=== PATIENT | female | born 1935 | race Asian ===

== ENCOUNTER → 2016-06-27 | Outpatient (CLI) | payer MEDICARE, OTHER ==
[~2016-06-27] VITALS: Ht 157.5 cm; Wt 59.6 kg
[~2016-06-27] MED LIST: AMLO5TAB66 PO; CARV12 PO; CHLO25TA16 PO; DIGO125T71 PO; METF500T4 PO; POTA8TAB4 PO; ROSU20 PO; VALS1TAB81 PO; VITAD1000 PO; ZAFI20TA13 PO
[2016-06-27 10:13] VITALS: BP 136/73
== END | disposition home or self-care (01) ==
LOC: SRCNTR 10:06
PROVIDERS: ATTEND Internal Medicine Clinical Cardiac Electrophysiology
DX: Z45.02 Encounter for adjustment and management of automatic implantable cardiac defibrillator (principal)
CPT/HCPCS: G0463

== ENCOUNTER → 2016-07-04 | Outpatient (CLI) | payer MEDICARE, OTHER ==
[~2016-07-04] VITALS: Ht 157.5 cm; Wt 59.5 kg
[2016-07-04 09:51] VITALS: BP 149/77
== END | disposition home or self-care (01) ==
LOC: SRCNTR 09:46
PROVIDERS: ATTEND Internal Medicine Clinical Cardiac Electrophysiology
DX: I11.0 Hypertensive heart disease with heart failure (principal); I50.9 Heart failure, unspecified; I25.10 Atherosclerotic heart disease of native coronary artery without angina pectoris; I44.7 Left bundle-branch block, unspecified; J45.909 Unspecified asthma, uncomplicated; E11.9 Type 2 diabetes mellitus without complications; Z95.810 Presence of automatic (implantable) cardiac defibrillator
CPT/HCPCS: G0463

== ENCOUNTER → 2016-08-01 | Outpatient (CLI) | payer MEDICARE, OTHER ==
[~2016-08-01] VITALS: Ht 147.3 cm; Wt 58.5 kg
[2016-08-01 10:33] VITALS: BP 133/75
== END | disposition home or self-care (01) ==
LOC: SRCNTR 10:14
PROVIDERS: ATTEND Internal Medicine Clinical Cardiac Electrophysiology
DX: Z45.02 Encounter for adjustment and management of automatic implantable cardiac defibrillator (principal); E11.9 Type 2 diabetes mellitus without complications; J45.909 Unspecified asthma, uncomplicated; I11.0 Hypertensive heart disease with heart failure; I50.9 Heart failure, unspecified; I25.10 Atherosclerotic heart disease of native coronary artery without angina pectoris
CPT/HCPCS: G0463

== ENCOUNTER → 2017-04-12 | Outpatient (CLI) | payer MEDICARE, OTHER ==
[~2017-04-12] VITALS: Ht 160 cm; Wt 59.0 kg
[~2017-04-12] MED LIST changes: -CHLO25TA16 PO; +CHLO25TA3 PO; +LORA5SOL62 PO
[2017-04-12 09:34] VITALS: BP 143/77
== END | disposition home or self-care (01) ==
LOC: SRCNTR 09:25
PROVIDERS: ATTEND Internal Medicine Cardiovascular Disease
DX: I11.9 Hypertensive heart disease without heart failure (principal); E78.5 Hyperlipidemia, unspecified; E55.9 Vitamin D deficiency, unspecified; E11.9 Type 2 diabetes mellitus without complications; I42.9 Cardiomyopathy, unspecified; J44.9 Chronic obstructive pulmonary disease, unspecified; M19.90 Unspecified osteoarthritis, unspecified site; Z95.810 Presence of automatic (implantable) cardiac defibrillator
CPT/HCPCS: G0463

== ENCOUNTER → 2017-06-28 | Outpatient (CLI) | payer MEDICARE, OTHER ==
[~2017-06-28] MED LIST changes: +METF-444 PO; -METF500T4 PO
[2017-06-28 12:30] LABS: BASOPHILS % (AUTO) 1.1 % (0.0-2.0); EOSINOPHILS % (AUTO) 2.5 % (1.0-6.0); HEMATOCRIT 34.9 % (36-46); HEMOGLOBIN 11.9 g/dL (12.0-16.0); LYMPHOCYTES % (AUTO) 26.4 % (22.0-44.0); MEAN CORPUSCULAR HEMOGLOBIN 28.7 pg (26.0-34.0); MEAN CORPUSCULAR HGB CONC 34.2 G/dL (31.0-37.0); MEAN CORPUSCULAR VOLUME 84 fL (80-100); MONOCYTES # (AUTO) 0.7 K/uL (0.1-1.0); NEUTROPHILS # (AUTO) 4.6 K/uL (1.8-7.7); PLATELET COUNT (AUTO) 181 K/uL (150-450); RED BLOOD CELL COUNT(AUTO) 4.17 MIL/uL (4.00-5.20); RED CELL DISTRIBUTION WIDTH 14.5 % (11.5-14.5)
[2017-06-28 13:05] LABS: ALBUMIN 3.9 g/dL (3.4-5.0); BILIRUBIN,TOTAL 0.5 mg/dL (0.1-1.0); CHOL/HDL RATIO 1.9 (3.9-5.7); CREATININE 0.95 mg/dL (0.60-1.30); POTASSIUM 4.1 mmol/L (3.5-5.1); THYROID STIMULATING HORMONE 4.22 uIU/mL (0.36-3.74); TOTAL PROTEIN, SERUM 9.4 g/dL (6.4-8.2)
[2017-06-28 13:30] LABS: APPEARANCE,URINE CLEAR (CLEAR); BILIRUBIN,URINE NEGATIVE (NEGATIVE); GLUCOSE, URINE (UA) NEGATIVE (NEGATIVE); KETONES,URINE NEGATIVE (NEGATIVE); OCCULT BLOOD,URINE TRACE (NEGATIVE); UROBILINOGEN,URINE 0.2 mg/dL (<=1.0)
[2017-06-28 13:31] LABS: LEUKOCYTE ESTERASE ,URINE TRACE (NEGATIVE); NITRATE,URINE NEGATIVE (NEGATIVE); PROTEIN,URINE TRACE (NEGATIVE)
[2017-06-28 15:08] LABS: BACTERIA,URINE Rare /HPF (None Seen); RBC,URINE 0-2 /HPF (0-2)
[2017-06-28 15:09] LABS: SQUAMOUS EPITHELIAL CELL,UR Rare /LPF (None Seen)
== END | disposition home or self-care (01) ==
LOC: LABPV 10:49
PROVIDERS: ATTEND Internal Medicine Cardiovascular Disease
DX: E11.9 Type 2 diabetes mellitus without complications (principal); R82.99 Other abnormal findings in urine
CPT/HCPCS: 84443; 87086

== ENCOUNTER → 2017-07-18 | Outpatient (CLI) | payer MEDICARE, OTHER ==
[~2017-07-18] VITALS: Ht 152.4 cm; Wt 59.0 kg
[~2017-07-18] MED LIST changes: +VALS160T2 PO
[2017-07-18 09:32] VITALS: BP 137/70
== END | disposition home or self-care (01) ==
LOC: SRCNTR 09:11
PROVIDERS: ATTEND Internal Medicine Cardiovascular Disease
DX: I11.9 Hypertensive heart disease without heart failure (principal); I42.9 Cardiomyopathy, unspecified; E11.9 Type 2 diabetes mellitus without complications; E78.5 Hyperlipidemia, unspecified; M19.90 Unspecified osteoarthritis, unspecified site; Z95.810 Presence of automatic (implantable) cardiac defibrillator
CPT/HCPCS: 11042; G0463

== ENCOUNTER → 2017-07-31 | Outpatient (CLI) | payer MEDICARE, OTHER ==
[~2017-07-31] VITALS: Ht 152.4 cm; Wt 59.0 kg
[~2017-07-31] MED LIST changes: -VALS1TAB81 PO
[2017-07-31 10:27] VITALS: BP 149/94
== END | disposition home or self-care (01) ==
LOC: SRCNTR 10:20
PROVIDERS: ATTEND Internal Medicine Clinical Cardiac Electrophysiology
DX: Z45.02 Encounter for adjustment and management of automatic implantable cardiac defibrillator (principal); I50.9 Heart failure, unspecified; I25.10 Atherosclerotic heart disease of native coronary artery without angina pectoris; J45.909 Unspecified asthma, uncomplicated; E11.9 Type 2 diabetes mellitus without complications
CPT/HCPCS: G0463

== ENCOUNTER → 2017-10-18 | Outpatient (CLI) | payer MEDICARE, OTHER ==
[~2017-10-18] VITALS: Ht 157.5 cm; Wt 58.5 kg
[2017-10-18 11:31] VITALS: BP 140/75
== END | disposition home or self-care (01) ==
LOC: SRCNTR 10:07
PROVIDERS: ATTEND Internal Medicine Cardiovascular Disease
DX: I11.9 Hypertensive heart disease without heart failure (principal); N63.20 Unspecified lump in the left breast, unspecified quadrant; I42.9 Cardiomyopathy, unspecified; M19.90 Unspecified osteoarthritis, unspecified site; E78.5 Hyperlipidemia, unspecified; J44.9 Chronic obstructive pulmonary disease, unspecified
CPT/HCPCS: G0463

== ENCOUNTER 2018-07-26 11:30 | Inpatient (IN) | payer MEDICARE, OTHER ==
[~2018-07-26] VITALS: Ht 152.4 cm; Wt 49.9 kg
[~2018-07-26 11:30] MED LIST changes: -CARV12 PO; +CARV25 PO; +LORA10TA7 PO; -LORA5SOL62 PO; -ROSU20 PO; +ROSU20TA23 PO
[2018-07-26] MEDS ORDERED: CYCLOBENZAPRINE HCL 10 MG TABLET ONE (12:56)
[2018-07-26] MEDS ORDERED: DENTURE ADHESIVE 68 GM CREAM DT PRN (14:15)
[2018-07-26] MEDS ORDERED: MAGNESIUM HYDROXIDE SUSPENSION 30 ML UDCUP PO PRN (14:15)
[2018-07-26] MEDS ORDERED: GLUCAGON,HUMAN RECOMBINANT 1 MG VIAL IM PRN (14:30)
[2018-07-26] MEDS ORDERED: DEXTROSE 50%-WATER 25 GM/50 ML SYRINGE IVP PRN (14:30)
[2018-07-26] MEDS ORDERED: INSULIN LISPRO 100 UNITS/ML SQ PRN ×2 (14:30)
[2018-07-26] MEDS: CYCLOBENZAPRINE HCL 10 MG TABLET PO SCH (14:41)
[2018-07-26] MEDS: OxyCODONE HCL/ACETAMINOPHEN 10-325 MG TABLET PO PRN ×2 (14:41→20:45)
[2018-07-26 15:49] VITALS: BP 137/66
[2018-07-26] MEDS ORDERED: ACETAMINOPHEN 325 MG TABLET PO PRN (17:45)
[2018-07-26 18:00] LABS: GLUCOMETER DEV NAME(LOC) 2WR.2; GLUCOSE,POINT OF CARE 106 MG/DL (70-110)
[2018-07-26 18:13] LABS: BASOPHILS % (AUTO) 0.3 % (0.0-2.0); EOSINOPHILS % (AUTO) 1.7 % (1.0-6.0); HEMATOCRIT 25.2 % (36-46); HEMOGLOBIN 8.4 g/dL (12.0-16.0); LYMPHOCYTES # (AUTO) 1.8 K/uL (1.0-4.8); LYMPHOCYTES % (AUTO) 26.2 % (22.0-44.0); MEAN CORPUSCULAR HEMOGLOBIN 28.3 pg (26.0-34.0); MEAN CORPUSCULAR HGB CONC 33.2 G/dL (31.0-37.0); MEAN CORPUSCULAR VOLUME 85 fL (80-100); MONOCYTES # (AUTO) 0.7 K/uL (0.1-1.0); MONOCYTES % (AUTO) 10.3 % (2.0-9.0); NEUTROPHILS # (AUTO) 4.2 K/uL (1.8-7.7); NEUTROPHILS % (AUTO) 61.5 % (40.0-70.0); PLATELET COUNT (AUTO) 150 K/uL (150-450); RED BLOOD CELL COUNT(AUTO) 2.96 MIL/uL (4.00-5.20); RED CELL DISTRIBUTION WIDTH 16.5 % (11.5-14.5)
[2018-07-26 18:31] LABS: ALANINE AMINOTRANSFERASE 15 U/L (12-78); ALBUMIN 2.8 g/dL (3.4-5.0); ALKALINE PHOSPHATASE 112 U/L (46-116); ANION GAP 10 mmol/L (8-16); ASPARTATE AMINOTRANSFERASE 24 U/L (15-37); BILIRUBIN,TOTAL 0.8 mg/dL (0.1-1.0); CARBON DIOXIDE 26 mmol/L (22-29); CHLORIDE 97 mmol/L (98-107); CREATININE 0.89 mg/dL (0.60-1.30); GLUCOSE,RANDOM 97 mg/dL (70-110); POTASSIUM 4.1 mmol/L (3.5-5.1); SODIUM SERUM 133 mmol/L (136-145); TOTAL PROTEIN, SERUM 7.2 g/dL (6.4-8.2); UREA NITROGEN, BLOOD 22 mg/dL (7-18)
[2018-07-26 18:32] LABS: GLOMERULAR FILTR. RATE CALC > 60 mL/min (>60)
[2018-07-26 20:39] VITALS: BP 129/50
[2018-07-26] MEDS: MELATONIN 5 MG TABLET PO PRN (20:44)
[2018-07-26] MEDS: CARVEDILOL 12.5 MG TABLET PO SCH (20:44)
[2018-07-26] MEDS: CHOLECALCIFEROL (VIT D3) 1,000 UNITS TABLET PO SCH (20:45)
[2018-07-26] MEDS: DOCUSATE SODIUM 100 MG CAPSULE PO SCH (20:46)
[2018-07-26] MEDS: SENNA 187 MG TABLET PO SCH (20:46)
[2018-07-26] MEDS ORDERED: 0.9% SODIUM CHLORIDE 10 ML SYRINGE IVP SCH (21:00)
[2018-07-26] MEDS ORDERED: DOCUSATE SODIUM 100 MG CAPSULE PO SCH (21:00)
[2018-07-27 00:25] VITALS: BP 120/61
[2018-07-27] MEDS: OxyCODONE HCL/ACETAMINOPHEN 10-325 MG TABLET PO PRN ×2 (00:25→10:19)
[2018-07-27] MEDS: 0.9% SODIUM CHLORIDE 10 ML SYRINGE IVP SCH ×4 (00:25→23:27)
[2018-07-27 06:35] LABS: GLUCOMETER DEV NAME(LOC) 2WR.2; GLUCOSE,POINT OF CARE 87 MG/DL (70-110)
[2018-07-27 07:46] VITALS: BP 115/53
[2018-07-27] MEDS: CARVEDILOL 12.5 MG TABLET PO SCH ×2 (08:26→20:53)
[2018-07-27] MEDS: ROSUVASTATIN CALCIUM 20 MG TABLET PO SCH (08:26)
[2018-07-27] MEDS: ENOXAPARIN SODIUM 40 MG/0.4 ML PF SYRINGE SQ SCH (08:26)
[2018-07-27] MEDS: DOCUSATE SODIUM 100 MG CAPSULE PO SCH ×2 (08:26→20:53)
[2018-07-27] MEDS: CHOLECALCIFEROL (VIT D3) 1,000 UNITS TABLET PO SCH ×2 (08:26→20:53)
[2018-07-27] MEDS: FAMOTIDINE 20 MG TABLET PO SCH (08:26)
[2018-07-27] MEDS: CYCLOBENZAPRINE HCL 10 MG TABLET PO SCH (08:26)
[2018-07-27] MEDS ORDERED: CYCLOBENZAPRINE HCL 10 MG TABLET PO PRN (08:45)
[2018-07-27 16:01] VITALS: BP 127/72
[2018-07-27] MEDS: OxyCODONE HCL/ACETAMINOPHEN 5-325 MG TABLET PO PRN ×2 (16:01→23:19)
[2018-07-27 17:39] LABS: GLUCOMETER DEV NAME(LOC) 2WR.2; GLUCOSE,POINT OF CARE 120 MG/DL (70-110)
[2018-07-27] MEDS: FERROUS SULFATE 325 MG EC TABLET PO SCH (17:49)
[2018-07-27] MEDS: OXYGEN THERAPY IH SCH (20:00)
[2018-07-27 20:50] VITALS: BP 135/71
[2018-07-27] MEDS: SENNA 187 MG TABLET PO SCH (20:53)
[2018-07-27] MEDS: CHLORHEXIDINE GLUCONATE 4% 118 ML TOPICAL LIQUID TP SCH (20:55)
[2018-07-27 21:24] LABS: GLUCOMETER DEV NAME(LOC) 2WR.1; GLUCOSE,POINT OF CARE 102 MG/DL (70-110)
[2018-07-27 23:19] VITALS: BP 112/57
[2018-07-28 06:19] LABS: GLUCOMETER DEV NAME(LOC) 2WR.2; GLUCOSE,POINT OF CARE 103 MG/DL (70-110)
[2018-07-28] MEDS: OXYGEN THERAPY IH SCH ×2 (08:00→20:00)
[2018-07-28 08:15] VITALS: BP 120/58
[2018-07-28] MEDS: OxyCODONE HCL/ACETAMINOPHEN 10-325 MG TABLET PO PRN ×2 (08:16→11:32)
[2018-07-28] MEDS: ROSUVASTATIN CALCIUM 20 MG TABLET PO SCH (08:21)
[2018-07-28] MEDS: CHOLECALCIFEROL (VIT D3) 1,000 UNITS TABLET PO SCH ×2 (08:21→20:19)
[2018-07-28] MEDS: DOCUSATE SODIUM 100 MG CAPSULE PO SCH ×2 (08:22→20:19)
[2018-07-28] MEDS: MULTIVITAMINS WITH MINERALS, THERAPEUTIC TABLET PO SCH (08:22)
[2018-07-28] MEDS: FERROUS SULFATE 325 MG EC TABLET PO SCH ×2 (08:22→17:33)
[2018-07-28] MEDS: CARVEDILOL 12.5 MG TABLET PO SCH ×2 (08:22→20:19)
[2018-07-28] MEDS: FAMOTIDINE 20 MG TABLET PO SCH (08:22)
[2018-07-28] MEDS: ENOXAPARIN SODIUM 40 MG/0.4 ML PF SYRINGE SQ SCH (08:23)
[2018-07-28] MEDS: 0.9% SODIUM CHLORIDE 10 ML SYRINGE IVP SCH ×3 (10:09→23:19)
[2018-07-28] MEDS ORDERED: SODIUM CL IRRIG SOLN BOTTLE 250 ML IRRIG ONE (11:30)
[2018-07-28] MEDS ORDERED: POLYETHYLENE GLYCOL 3350 17 GM PACKET PO PRN (14:30)
[2018-07-28 15:41] VITALS: BP 115/63
[2018-07-28] MEDS: MetFORMIN HCL 500 MG TABLET PO SCH (17:33)
[2018-07-28 17:35] LABS: APPEARANCE,URINE CLOUDY (CLEAR); BILIRUBIN,URINE NEGATIVE (NEGATIVE); GLUCOSE, URINE (UA) NEGATIVE (NEGATIVE); KETONES,URINE NEGATIVE (NEGATIVE); LEUKOCYTE ESTERASE ,URINE MODERATE (NEGATIVE); NITRATE,URINE NEGATIVE (NEGATIVE); OCCULT BLOOD,URINE MODERATE (NEGATIVE); PROTEIN,URINE POS 1+ (NEGATIVE)
[2018-07-28 17:44] LABS: GLUCOMETER DEV NAME(LOC) 2WR.2; GLUCOSE,POINT OF CARE 99 MG/DL (70-110)
[2018-07-28 17:47] LABS: BACTERIA,URINE Many /HPF (None Seen); SQUAMOUS EPITHELIAL CELL,UR Few /LPF (None Seen)
[2018-07-28] MEDS: SENNA 187 MG TABLET PO SCH (20:19)
[2018-07-28] MEDS: CHLORHEXIDINE GLUCONATE 4% 118 ML TOPICAL LIQUID TP SCH (20:19)
[2018-07-28 23:19] VITALS: BP 131/65
[2018-07-28] MEDS: OxyCODONE HCL/ACETAMINOPHEN 5-325 MG TABLET PO PRN (23:19)
[2018-07-29] MEDS: OxyCODONE HCL/ACETAMINOPHEN 10-325 MG TABLET PO PRN (06:19)
[2018-07-29 06:44] LABS: GLUCOMETER DEV NAME(LOC) 2WR.1; GLUCOSE,POINT OF CARE 117 MG/DL (70-110)
[2018-07-29 07:20] VITALS: BP 107/51
[2018-07-29] MEDS: OXYGEN THERAPY IH SCH ×2 (08:00→20:00)
[2018-07-29] MEDS: ENOXAPARIN SODIUM 40 MG/0.4 ML PF SYRINGE SQ SCH (08:15)
[2018-07-29] MEDS: FAMOTIDINE 20 MG TABLET PO SCH (08:15)
[2018-07-29] MEDS: DOCUSATE SODIUM 100 MG CAPSULE PO SCH ×2 (08:15→21:25)
[2018-07-29] MEDS: CHOLECALCIFEROL (VIT D3) 1,000 UNITS TABLET PO SCH ×2 (08:16→21:25)
[2018-07-29] MEDS: MULTIVITAMINS WITH MINERALS, THERAPEUTIC TABLET PO SCH (08:16)
[2018-07-29] MEDS: MetFORMIN HCL 500 MG TABLET PO SCH ×2 (08:16→17:26)
[2018-07-29] MEDS: FERROUS SULFATE 325 MG EC TABLET PO SCH ×2 (08:16→17:26)
[2018-07-29] MEDS: CARVEDILOL 12.5 MG TABLET PO SCH ×3 (08:16→21:26)
[2018-07-29] MEDS: ROSUVASTATIN CALCIUM 20 MG TABLET PO SCH (08:16)
[2018-07-29] MEDS: 0.9% SODIUM CHLORIDE 10 ML SYRINGE IVP SCH ×3 (08:18→23:16)
[2018-07-29] MEDS: HYDROCODONE/ACETAMINOPHEN 10-325 MG TABLET PO PRN (12:06)
[2018-07-29] MEDS: CALCIUM CARBONATE 500 MG CHEWABLE TABLET CHEW SCH ×2 (12:06→21:24)
[2018-07-29] MEDS: DICLOFENAC SODIUM 1% 100 GM GEL [4GM] TP SCH ×2 (12:07→21:24)
[2018-07-29 15:40] VITALS: BP 127/56
[2018-07-29] MEDS: HYDROCODONE/ACETAMINOPHEN 5-325 MG TABLET PO PRN (15:43)
[2018-07-29 17:59] LABS: GLUCOMETER DEV NAME(LOC) 2WR.2; GLUCOSE,POINT OF CARE 112 MG/DL (70-110)
[2018-07-29] MEDS ORDERED: SODIUM CHLORIDE 0.9% 250 ML IV ONE (19:14)
[2018-07-29] MEDS: CHLORHEXIDINE GLUCONATE 4% 118 ML TOPICAL LIQUID TP SCH (21:24)
[2018-07-29] MEDS: SENNA 187 MG TABLET PO SCH (21:25)
[2018-07-29] MEDS: ENOXAPARIN SODIUM 30 MG/0.3 ML PF SYRINGE SQ SCH (21:25)
[2018-07-29 23:59] VITALS: BP 114/55
[2018-07-30] MEDS: HYDROCODONE/ACETAMINOPHEN 10-325 MG TABLET PO PRN ×4 (03:39→23:55)
[2018-07-30 06:34] LABS: GLUCOMETER DEV NAME(LOC) 2WR.1; GLUCOSE,POINT OF CARE 98 MG/DL (70-110)
[2018-07-30 07:15] VITALS: BP 129/69
[2018-07-30] MEDS: OXYGEN THERAPY IH SCH ×2 (08:00→20:00)
[2018-07-30] MEDS: MULTIVITAMINS WITH MINERALS, THERAPEUTIC TABLET PO SCH (08:16)
[2018-07-30] MEDS: FERROUS SULFATE 325 MG EC TABLET PO SCH ×2 (08:16→17:22)
[2018-07-30] MEDS: MetFORMIN HCL 500 MG TABLET PO SCH ×2 (08:16→17:22)
[2018-07-30] MEDS: DOCUSATE SODIUM 100 MG CAPSULE PO SCH ×2 (08:16→20:57)
[2018-07-30] MEDS: DICLOFENAC SODIUM 1% 100 GM GEL [4GM] TP SCH ×2 (08:17→20:47)
[2018-07-30] MEDS: CARVEDILOL 12.5 MG TABLET PO SCH ×2 (08:17→20:47)
[2018-07-30] MEDS: ROSUVASTATIN CALCIUM 20 MG TABLET PO SCH (08:17)
[2018-07-30] MEDS: ENOXAPARIN SODIUM 30 MG/0.3 ML PF SYRINGE SQ SCH ×2 (08:17→20:46)
[2018-07-30] MEDS: CALCIUM CARBONATE 500 MG CHEWABLE TABLET CHEW SCH ×2 (08:17→20:47)
[2018-07-30] MEDS: CHOLECALCIFEROL (VIT D3) 1,000 UNITS TABLET PO SCH ×2 (08:17→20:47)
[2018-07-30] MEDS: FAMOTIDINE 20 MG TABLET PO SCH (08:18)
[2018-07-30 16:57] VITALS: BP 118/57
[2018-07-30 19:32] LABS: GLUCOMETER DEV NAME(LOC) 2WR.1; GLUCOSE,POINT OF CARE 113 MG/DL (70-110)
[2018-07-30] MEDS: MELATONIN 5 MG TABLET PO PRN (20:46)
[2018-07-30] MEDS: CHLORHEXIDINE GLUCONATE 4% 118 ML TOPICAL LIQUID TP SCH (20:47)
[2018-07-30] MEDS: SULFAMETHOX/TRIMETH DS 800-160 MG/TABLET PO SCH (20:47)
[2018-07-30 20:50] VITALS: BP 127/64
[2018-07-30] MEDS: SENNA 187 MG TABLET PO SCH (20:57)
[2018-07-30 23:55] VITALS: BP 120/56
[2018-07-31] MEDS: HYDROCODONE/ACETAMINOPHEN 10-325 MG TABLET PO PRN ×2 (06:37→10:55)
[2018-07-31 06:44] LABS: GLUCOMETER DEV NAME(LOC) 2WR.2; GLUCOSE,POINT OF CARE 94 MG/DL (70-110)
[2018-07-31 07:37] VITALS: BP 123/64
[2018-07-31] MEDS: OXYGEN THERAPY IH SCH ×2 (08:00→19:20)
[2018-07-31] MEDS: CHOLECALCIFEROL (VIT D3) 1,000 UNITS TABLET PO SCH ×2 (08:16→19:19)
[2018-07-31] MEDS: FERROUS SULFATE 325 MG EC TABLET PO SCH ×2 (08:16→17:29)
[2018-07-31] MEDS: ENOXAPARIN SODIUM 30 MG/0.3 ML PF SYRINGE SQ SCH ×2 (08:16→19:20)
[2018-07-31] MEDS: FAMOTIDINE 20 MG TABLET PO SCH (08:16)
[2018-07-31] MEDS: MULTIVITAMINS WITH MINERALS, THERAPEUTIC TABLET PO SCH (08:16)
[2018-07-31] MEDS: CALCIUM CARBONATE 500 MG CHEWABLE TABLET CHEW SCH ×2 (08:16→19:19)
[2018-07-31] MEDS: MetFORMIN HCL 500 MG TABLET PO SCH ×2 (08:16→17:29)
[2018-07-31] MEDS: CARVEDILOL 12.5 MG TABLET PO SCH ×2 (08:16→19:19)
[2018-07-31] MEDS: SULFAMETHOX/TRIMETH DS 800-160 MG/TABLET PO SCH (08:16)
[2018-07-31] MEDS: ROSUVASTATIN CALCIUM 20 MG TABLET PO SCH (08:17)
[2018-07-31] MEDS: DOCUSATE SODIUM 100 MG CAPSULE PO SCH ×2 (08:17→19:19)
[2018-07-31] MEDS: DICLOFENAC SODIUM 1% 100 GM GEL [4GM] TP SCH ×2 (08:21→19:12)
[2018-07-31] MEDS: LEVOFLOXACIN 500 MG TABLET PO SCH (12:39)
[2018-07-31 18:04] LABS: GLUCOMETER DEV NAME(LOC) 2WR.1; GLUCOSE,POINT OF CARE 92 MG/DL (70-110)
[2018-07-31 19:10] VITALS: BP 127/56
[2018-07-31] MEDS: HYDROCODONE/ACETAMINOPHEN 5-325 MG TABLET PO PRN (19:10)
[2018-07-31] MEDS: SENNA 187 MG TABLET PO SCH (19:19)
[2018-07-31] MEDS: CHLORHEXIDINE GLUCONATE 4% 118 ML TOPICAL LIQUID TP SCH (19:19)
[2018-08-01 01:23] VITALS: BP 120/63
[2018-08-01] MEDS: HYDROCODONE/ACETAMINOPHEN 10-325 MG TABLET PO PRN (01:23)
[2018-08-01 06:24] LABS: GLUCOMETER DEV NAME(LOC) 2WR.2; GLUCOSE,POINT OF CARE 88 MG/DL (70-110)
[2018-08-01] MEDS: OXYGEN THERAPY IH SCH ×2 (08:00→20:00)
[2018-08-01] MEDS: ENOXAPARIN SODIUM 30 MG/0.3 ML PF SYRINGE SQ SCH ×2 (08:11→20:12)
[2018-08-01] MEDS: CARVEDILOL 12.5 MG TABLET PO SCH ×2 (08:12→20:12)
[2018-08-01] MEDS: MULTIVITAMINS WITH MINERALS, THERAPEUTIC TABLET PO SCH (08:12)
[2018-08-01] MEDS: FERROUS SULFATE 325 MG EC TABLET PO SCH ×2 (08:12→18:43)
[2018-08-01] MEDS: DOCUSATE SODIUM 100 MG CAPSULE PO SCH ×2 (08:12→20:12)
[2018-08-01] MEDS: ROSUVASTATIN CALCIUM 20 MG TABLET PO SCH (08:12)
[2018-08-01] MEDS: LEVOFLOXACIN 500 MG TABLET PO SCH (08:12)
[2018-08-01] MEDS: FAMOTIDINE 20 MG TABLET PO SCH (08:12)
[2018-08-01] MEDS: MetFORMIN HCL 500 MG TABLET PO SCH ×2 (08:13→18:43)
[2018-08-01] MEDS: CALCIUM CARBONATE 500 MG CHEWABLE TABLET CHEW SCH ×2 (08:13→20:12)
[2018-08-01] MEDS: CHOLECALCIFEROL (VIT D3) 1,000 UNITS TABLET PO SCH ×2 (08:13→20:12)
[2018-08-01] MEDS: DICLOFENAC SODIUM 1% 100 GM GEL [4GM] TP SCH ×2 (08:13→20:13)
[2018-08-01 09:29] VITALS: BP 129/64
[2018-08-01 16:09] VITALS: BP 136/61
[2018-08-01] MEDS: ACETAMINOPHEN 325 MG TABLET PO PRN (18:47)
[2018-08-01 20:00] VITALS: BP 128/61
[2018-08-01] MEDS: CHLORHEXIDINE GLUCONATE 4% 118 ML TOPICAL LIQUID TP SCH (20:13)
[2018-08-01] MEDS: SENNA 187 MG TABLET PO SCH (20:14)
[2018-08-02 00:28] VITALS: BP 118/55
[2018-08-02] MEDS: HYDROCODONE/ACETAMINOPHEN 5-325 MG TABLET PO PRN ×2 (05:39→18:29)
[2018-08-02 05:59] LABS: GLUCOMETER DEV NAME(LOC) 2WR.2; GLUCOSE,POINT OF CARE 91 MG/DL (70-110)
[2018-08-02] MEDS: MetFORMIN HCL 500 MG TABLET PO SCH ×2 (08:58→18:25)
[2018-08-02] MEDS: FERROUS SULFATE 325 MG EC TABLET PO SCH ×2 (08:59→18:25)
[2018-08-02 09:09] VITALS: BP 141/69
[2018-08-02] MEDS: DICLOFENAC SODIUM 1% 100 GM GEL [4GM] TP SCH ×2 (09:15→20:18)
[2018-08-02] MEDS: CALCIUM CARBONATE 500 MG CHEWABLE TABLET CHEW SCH ×2 (09:15→22:06)
[2018-08-02] MEDS: LEVOFLOXACIN 500 MG TABLET PO SCH (09:15)
[2018-08-02] MEDS: FAMOTIDINE 20 MG TABLET PO SCH (09:15)
[2018-08-02] MEDS: DOCUSATE SODIUM 100 MG CAPSULE PO SCH ×2 (09:15→21:00)
[2018-08-02] MEDS: HYDROCODONE/ACETAMINOPHEN 10-325 MG TABLET PO PRN (09:15)
[2018-08-02] MEDS: MULTIVITAMINS WITH MINERALS, THERAPEUTIC TABLET PO SCH (09:15)
[2018-08-02] MEDS: ENOXAPARIN SODIUM 30 MG/0.3 ML PF SYRINGE SQ SCH ×2 (09:15→20:20)
[2018-08-02] MEDS: ROSUVASTATIN CALCIUM 20 MG TABLET PO SCH (09:16)
[2018-08-02] MEDS: CHOLECALCIFEROL (VIT D3) 1,000 UNITS TABLET PO SCH ×2 (09:17→20:19)
[2018-08-02] MEDS: CARVEDILOL 12.5 MG TABLET PO SCH ×2 (09:17→20:19)
[2018-08-02] MEDS: OXYGEN THERAPY IH SCH ×2 (09:23→20:00)
[2018-08-02 15:37] VITALS: BP 128/72
[2018-08-02] MEDS: CHLORHEXIDINE GLUCONATE 4% 118 ML TOPICAL LIQUID TP SCH (20:19)
[2018-08-02] MEDS: MELATONIN 5 MG TABLET PO PRN (20:19)
[2018-08-02] MEDS: SENNA 187 MG TABLET PO SCH (21:00)
[2018-08-03 01:00] VITALS: BP 130/69
[2018-08-03 07:45] VITALS: BP 134/69
[2018-08-03] MEDS: MetFORMIN HCL 500 MG TABLET PO SCH ×2 (07:48→18:51)
[2018-08-03] MEDS: FAMOTIDINE 20 MG TABLET PO SCH (07:48)
[2018-08-03] MEDS: LEVOFLOXACIN 500 MG TABLET PO SCH (07:48)
[2018-08-03] MEDS: CHOLECALCIFEROL (VIT D3) 1,000 UNITS TABLET PO SCH ×2 (07:48→20:39)
[2018-08-03] MEDS: DOCUSATE SODIUM 100 MG CAPSULE PO SCH ×3 (07:48→20:44)
[2018-08-03] MEDS: ENOXAPARIN SODIUM 30 MG/0.3 ML PF SYRINGE SQ SCH ×2 (07:49→20:38)
[2018-08-03] MEDS: CARVEDILOL 12.5 MG TABLET PO SCH ×2 (07:49→20:39)
[2018-08-03] MEDS: CALCIUM CARBONATE 500 MG CHEWABLE TABLET CHEW SCH ×2 (07:49→20:39)
[2018-08-03] MEDS: DICLOFENAC SODIUM 1% 100 GM GEL [4GM] TP SCH ×2 (07:50→20:38)
[2018-08-03] MEDS: ROSUVASTATIN CALCIUM 20 MG TABLET PO SCH (07:50)
[2018-08-03] MEDS: MULTIVITAMINS WITH MINERALS, THERAPEUTIC TABLET PO SCH (07:50)
[2018-08-03] MEDS: FERROUS SULFATE 325 MG EC TABLET PO SCH ×2 (07:50→18:51)
[2018-08-03] MEDS: OXYGEN THERAPY IH SCH ×2 (07:50→20:00)
[2018-08-03] MEDS: HYDROCODONE/ACETAMINOPHEN 5-325 MG TABLET PO PRN ×3 (09:51→22:54)
[2018-08-03 16:34] VITALS: BP 154/72
[2018-08-03] MEDS: CHLORHEXIDINE GLUCONATE 4% 118 ML TOPICAL LIQUID TP SCH (20:38)
[2018-08-03] MEDS: SENNA 187 MG TABLET PO SCH (20:44)
[2018-08-03 23:08] VITALS: BP 125/51
[2018-08-04] MEDS: HYDROCODONE/ACETAMINOPHEN 5-325 MG TABLET PO PRN ×4 (04:35→23:57)
[2018-08-04 08:00] VITALS: BP 125/65
[2018-08-04] MEDS: OXYGEN THERAPY IH SCH ×2 (08:00→20:00)
[2018-08-04] MEDS: DOCUSATE SODIUM 100 MG CAPSULE PO SCH ×2 (09:00→20:22)
[2018-08-04] MEDS: ENOXAPARIN SODIUM 30 MG/0.3 ML PF SYRINGE SQ SCH ×2 (09:03→20:23)
[2018-08-04] MEDS: DICLOFENAC SODIUM 1% 100 GM GEL [4GM] TP SCH ×2 (09:03→20:19)
[2018-08-04] MEDS: CALCIUM CARBONATE 500 MG CHEWABLE TABLET CHEW SCH ×2 (09:03→20:22)
[2018-08-04] MEDS: ROSUVASTATIN CALCIUM 20 MG TABLET PO SCH (09:03)
[2018-08-04] MEDS: FERROUS SULFATE 325 MG EC TABLET PO SCH ×2 (09:04→18:13)
[2018-08-04] MEDS: FAMOTIDINE 20 MG TABLET PO SCH (09:04)
[2018-08-04] MEDS: CHOLECALCIFEROL (VIT D3) 1,000 UNITS TABLET PO SCH ×2 (09:04→20:20)
[2018-08-04] MEDS: MetFORMIN HCL 500 MG TABLET PO SCH ×2 (09:04→18:13)
[2018-08-04] MEDS: MULTIVITAMINS WITH MINERALS, THERAPEUTIC TABLET PO SCH (09:04)
[2018-08-04] MEDS: LEVOFLOXACIN 500 MG TABLET PO SCH (09:05)
[2018-08-04] MEDS: CARVEDILOL 12.5 MG TABLET PO SCH ×2 (09:05→20:19)
[2018-08-04 15:30] VITALS: BP 136/64
[2018-08-04] MEDS: CHLORHEXIDINE GLUCONATE 4% 118 ML TOPICAL LIQUID TP SCH (20:19)
[2018-08-04 20:20] VITALS: BP 142/77
[2018-08-04] MEDS: ACETAMINOPHEN 325 MG TABLET PO PRN (20:20)
[2018-08-04] MEDS: SENNA 187 MG TABLET PO SCH (20:22)
[2018-08-04] MEDS ORDERED: CALC500T7 PO (22:53)
[2018-08-04] MEDS ORDERED: DSS100 PO (22:56)
[2018-08-04] MEDS ORDERED: FAMO20 PO (22:56)
[2018-08-04] MEDS ORDERED: FERR-89 PO (22:56)
[2018-08-04] MEDS ORDERED: DICL2100G TP (22:56)
[2018-08-04 23:57] VITALS: BP 124/57
[2018-08-05] MEDS: HYDROCODONE/ACETAMINOPHEN 5-325 MG TABLET PO PRN ×4 (04:24→21:09)
[2018-08-05 07:58] VITALS: BP 125/65
[2018-08-05] MEDS: OXYGEN THERAPY IH SCH ×2 (08:00→20:00)
[2018-08-05] MEDS: LEVOFLOXACIN 500 MG TABLET PO SCH (08:23)
[2018-08-05] MEDS: FAMOTIDINE 20 MG TABLET PO SCH (08:23)
[2018-08-05] MEDS: MULTIVITAMINS WITH MINERALS, THERAPEUTIC TABLET PO SCH (08:23)
[2018-08-05] MEDS: FERROUS SULFATE 325 MG EC TABLET PO SCH ×2 (08:23→17:35)
[2018-08-05] MEDS: ENOXAPARIN SODIUM 30 MG/0.3 ML PF SYRINGE SQ SCH ×2 (08:23→20:57)
[2018-08-05] MEDS: ROSUVASTATIN CALCIUM 20 MG TABLET PO SCH (08:24)
[2018-08-05] MEDS: CARVEDILOL 12.5 MG TABLET PO SCH ×2 (08:24→20:57)
[2018-08-05] MEDS: DOCUSATE SODIUM 100 MG CAPSULE PO SCH ×2 (08:24→20:32)
[2018-08-05] MEDS: CALCIUM CARBONATE 500 MG CHEWABLE TABLET CHEW SCH ×2 (08:24→20:56)
[2018-08-05] MEDS: MetFORMIN HCL 500 MG TABLET PO SCH ×2 (08:24→17:35)
[2018-08-05] MEDS: CHOLECALCIFEROL (VIT D3) 1,000 UNITS TABLET PO SCH ×2 (08:24→20:56)
[2018-08-05] MEDS: DICLOFENAC SODIUM 1% 100 GM GEL [4GM] TP SCH ×2 (08:25→20:57)
[2018-08-05 15:30] VITALS: BP 154/82
[2018-08-05] MEDS ORDERED: MULT-723 PO (17:07)
[2018-08-05] MEDS: SENNA 187 MG TABLET PO SCH (20:31)
[2018-08-05] MEDS: CHLORHEXIDINE GLUCONATE 4% 118 ML TOPICAL LIQUID TP SCH (20:57)
[2018-08-05 21:09] VITALS: BP 142/78
[2018-08-06 02:40] VITALS: BP 128/59
[2018-08-06 07:30] VITALS: BP 136/75
[2018-08-06] MEDS: CARVEDILOL 12.5 MG TABLET PO SCH ×2 (08:40→20:05)
[2018-08-06] MEDS: FERROUS SULFATE 325 MG EC TABLET PO SCH ×2 (08:40→17:56)
[2018-08-06] MEDS: MULTIVITAMINS WITH MINERALS, THERAPEUTIC TABLET PO SCH (08:40)
[2018-08-06] MEDS: FAMOTIDINE 20 MG TABLET PO SCH (08:40)
[2018-08-06] MEDS: CHOLECALCIFEROL (VIT D3) 1,000 UNITS TABLET PO SCH ×2 (08:40→20:05)
[2018-08-06] MEDS: ENOXAPARIN SODIUM 30 MG/0.3 ML PF SYRINGE SQ SCH ×2 (08:40→20:05)
[2018-08-06] MEDS: MetFORMIN HCL 500 MG TABLET PO SCH ×2 (08:40→17:56)
[2018-08-06] MEDS: ROSUVASTATIN CALCIUM 20 MG TABLET PO SCH (08:41)
[2018-08-06] MEDS: DOCUSATE SODIUM 100 MG CAPSULE PO SCH ×3 (08:41→20:06)
[2018-08-06] MEDS: DICLOFENAC SODIUM 1% 100 GM GEL [4GM] TP SCH ×2 (08:41→20:04)
[2018-08-06] MEDS: CALCIUM CARBONATE 500 MG CHEWABLE TABLET CHEW SCH ×2 (08:41→20:05)
[2018-08-06] MEDS: OXYGEN THERAPY IH SCH (08:41)
[2018-08-06] MEDS: HYDROCODONE/ACETAMINOPHEN 5-325 MG TABLET PO PRN ×2 (09:21→20:05)
[2018-08-06 14:03] LABS: BASOPHILS % (AUTO) 0.7 % (0.0-2.0); EOSINOPHILS % (AUTO) 0.8 % (1.0-6.0); HEMATOCRIT 29.4 % (36-46); HEMOGLOBIN 9.4 g/dL (12.0-16.0); LYMPHOCYTES # (AUTO) 1.7 K/uL (1.0-4.8); LYMPHOCYTES % (AUTO) 28.8 % (22.0-44.0); MEAN CORPUSCULAR HEMOGLOBIN 28.3 pg (26.0-34.0); MEAN CORPUSCULAR VOLUME 88 fL (80-100); MONOCYTES # (AUTO) 0.6 K/uL (0.1-1.0); MONOCYTES % (AUTO) 9.9 % (2.0-9.0); NEUTROPHILS # (AUTO) 3.6 K/uL (1.8-7.7); NEUTROPHILS % (AUTO) 59.8 % (40.0-70.0); PLATELET COUNT (AUTO) 290 K/uL (150-450); RED BLOOD CELL COUNT(AUTO) 3.33 MIL/uL (4.00-5.20); RED CELL DISTRIBUTION WIDTH 17.7 % (11.5-14.5)
[2018-08-06 14:16] LABS: ANION GAP 9 mmol/L (8-16); CALCIUM, TOTAL 9.3 mg/dL (8.8-10.5); CARBON DIOXIDE 25 mmol/L (22-29); CHLORIDE 102 mmol/L (98-107); CREATININE 0.87 mg/dL (0.60-1.30); GLUCOSE,RANDOM 125 mg/dL (70-110); POTASSIUM 3.9 mmol/L (3.5-5.1); SODIUM SERUM 136 mmol/L (136-145); UREA NITROGEN, BLOOD 16 mg/dL (7-18)
[2018-08-06 14:17] LABS: GLOMERULAR FILTR. RATE CALC > 60 mL/min (>60)
[2018-08-06 15:47] VITALS: BP 136/67
[2018-08-06] MEDS: CHLORHEXIDINE GLUCONATE 4% 118 ML TOPICAL LIQUID TP SCH (20:04)
[2018-08-06] MEDS: MELATONIN 5 MG TABLET PO PRN (20:05)
[2018-08-06] MEDS: SENNA 187 MG TABLET PO SCH (20:06)
[2018-08-07 02:14] VITALS: BP 119/61
[2018-08-07] MEDS: HYDROCODONE/ACETAMINOPHEN 5-325 MG TABLET PO PRN (02:14)
[2018-08-07] MEDS: CARVEDILOL 12.5 MG TABLET PO SCH (08:10)
[2018-08-07] MEDS: CALCIUM CARBONATE 500 MG CHEWABLE TABLET CHEW SCH (08:10)
[2018-08-07] MEDS: MetFORMIN HCL 500 MG TABLET PO SCH (08:10)
[2018-08-07] MEDS: ROSUVASTATIN CALCIUM 20 MG TABLET PO SCH (08:10)
[2018-08-07] MEDS: DOCUSATE SODIUM 100 MG CAPSULE PO SCH (08:10)
[2018-08-07] MEDS: FAMOTIDINE 20 MG TABLET PO SCH (08:10)
[2018-08-07] MEDS: FERROUS SULFATE 325 MG EC TABLET PO SCH (08:10)
[2018-08-07] MEDS: CHOLECALCIFEROL (VIT D3) 1,000 UNITS TABLET PO SCH (08:10)
[2018-08-07] MEDS: ENOXAPARIN SODIUM 30 MG/0.3 ML PF SYRINGE SQ SCH (08:11)
[2018-08-07] MEDS: DICLOFENAC SODIUM 1% 100 GM GEL [4GM] TP SCH (08:11)
[2018-08-07] MEDS: MULTIVITAMINS WITH MINERALS, THERAPEUTIC TABLET PO SCH (09:00)
[2018-08-07 09:44] VITALS: BP 141/69
[2018-08-07] MEDS ORDERED: HEPARIN SODIUM,PORCINE 100 UNITS/ML 5 ML VIAL IVP ONE (12:00)
[2018-08-07] MEDS ORDERED: HYDR-4061 PO (14:12)
[2018-08-07] MEDS ORDERED: ASPI-1182 PO (14:12)
[2018-08-08] MEDS ORDERED: ASPIRIN 81 MG EC TABLET PO SCH (09:00)
== END 2018-08-07 15:30 | disposition home or self-care (01) | DRG 535 ==
LOC: 2WR 11:30
PROVIDERS: ADMIT Physical Medicine & Rehabilitation; ATTEND Physical Medicine & Rehabilitation
DX: S72.141A Displaced intertrochanteric fracture of right femur, initial encounter for closed fracture (principal); E43 Unspecified severe protein-calorie malnutrition; I50.30 Unspecified diastolic (congestive) heart failure; D63.8 Anemia in other chronic diseases classified elsewhere; E11.9 Type 2 diabetes mellitus without complications; E89.0 Postprocedural hypothyroidism; G47.00 Insomnia, unspecified; I11.0 Hypertensive heart disease with heart failure; I25.10 Atherosclerotic heart disease of native coronary artery without angina pectoris; I34.0 Nonrheumatic mitral (valve) insufficiency; J45.909 Unspecified asthma, uncomplicated; K59.00 Constipation, unspecified; N31.9 Neuromuscular dysfunction of bladder, unspecified; Z79.899 Other long term (current) drug therapy; Z85.3 Personal history of malignant neoplasm of breast; Z92.21 Personal history of antineoplastic chemotherapy; Z95.0 Presence of cardiac pacemaker; Z80.42 Family history of malignant neoplasm of prostate; Z80.8 Family history of malignant neoplasm of other organs or systems; Z68.23 Body mass index [BMI] 23.0-23.9, adult
CPT/HCPCS: 87081; 87086; 97110; 97116; 97150; 97162; 97166; 97530; 97535; 99366; G0238; J1642; J1650; J7050

== ENCOUNTER → 2018-09-02 | Outpatient (CLI) | payer MEDICARE, OTHER ==
[~2018-09-02] MED LIST changes: -AMLO5TAB66 PO; +ASPI-1182 PO; +CALC500T7 PO; -CHLO25TA3 PO; +DICL2100G TP; -DIGO125T71 PO; +DSS100 PO; +FAMO20 PO; +FERR-89 PO; +HYDR-4061 PO; -LORA10TA7 PO; +MULT-723 PO; -POTA8TAB4 PO; -VALS160T2 PO; -ZAFI20TA13 PO
== END | disposition home or self-care (01) ==
LOC: RADPV 10:04
PROVIDERS: ATTEND Orthopaedic Surgery
DX: S72.141D Displaced intertrochanteric fracture of right femur, subsequent encounter for closed fracture with routine healing (principal); X58.XXXD Exposure to other specified factors, subsequent encounter
CPT/HCPCS: 73502; 73552

== ENCOUNTER → 2019-02-28 | Outpatient (CLI) | payer MEDICARE, OTHER ==
[~2019-02-28] VITALS: Ht 149.9 cm; Wt 52.0 kg
[~2019-02-28] MED LIST changes: +AMLO5TAB9 PO; +ASPI-1111 PO; -ASPI-1182 PO; +CHOL100018 PO; +LETR2.5 PO; +LORA5SOL62 PO; +POTA8TAB4 PO; +VALS320T17 PO; -VITAD1000 PO; +ZAFI20TA13 PO
[2019-02-28 11:17] VITALS: BP 161/69
== END | disposition home or self-care (01) ==
LOC: SRCNTR 11:16
PROVIDERS: ATTEND Internal Medicine Cardiovascular Disease
DX: I10 Essential (primary) hypertension (principal); I42.9 Cardiomyopathy, unspecified; E11.9 Type 2 diabetes mellitus without complications; E78.5 Hyperlipidemia, unspecified; Z95.0 Presence of cardiac pacemaker
CPT/HCPCS: G0463

== ENCOUNTER → 2019-07-30 | Outpatient (CLI) | payer MEDICARE, OTHER ==
[~2019-07-30] MED LIST changes: +AMLO-257 PO; -AMLO5TAB9 PO; -DICL2100G TP; -HYDR-4061 PO
== END | disposition home or self-care (01) ==
LOC: SRCNTR 09:53
PROVIDERS: ATTEND Internal Medicine Cardiovascular Disease
DX: I49.8 Other specified cardiac arrhythmias (principal); E11.9 Type 2 diabetes mellitus without complications; I10 Essential (primary) hypertension; E78.5 Hyperlipidemia, unspecified
CPT/HCPCS: Q3014

== ENCOUNTER → 2019-07-31 | Outpatient (CLI) | payer MEDICARE, OTHER ==
[~2019-07-31] MED LIST changes: +CHLO25TA3 PO; +DIGO125T2 PO
== END | disposition home or self-care (01) ==
LOC: SRCNTR 12:34
PROVIDERS: ATTEND Hospitalist
DX: I42.8 Other cardiomyopathies (principal); E11.9 Type 2 diabetes mellitus without complications; I10 Essential (primary) hypertension; E78.5 Hyperlipidemia, unspecified; C50.912 Malignant neoplasm of unspecified site of left female breast; Z88.8 Allergy status to other drugs, medicaments and biological substances; Z95.810 Presence of automatic (implantable) cardiac defibrillator; Z79.899 Other long term (current) drug therapy
CPT/HCPCS: Q3014

== ENCOUNTER → 2019-09-04 | Outpatient (CLI) | payer MEDICARE, OTHER ==
[~2019-09-04] MED LIST changes: -CHLO25TA3 PO; -DIGO125T2 PO
== END | disposition home or self-care (01) ==
LOC: SRCNTR 14:42
PROVIDERS: ATTEND Internal Medicine Cardiovascular Disease
DX: I49.9 Cardiac arrhythmia, unspecified (principal); E11.9 Type 2 diabetes mellitus without complications; I10 Essential (primary) hypertension; E78.5 Hyperlipidemia, unspecified; Z85.3 Personal history of malignant neoplasm of breast; Z95.0 Presence of cardiac pacemaker
CPT/HCPCS: Q3014

== ENCOUNTER → 2019-10-02 | Outpatient (CLI) | payer MEDICARE, OTHER ==
[~2019-10-02] VITALS: Ht 149.9 cm; Wt 56.0 kg
[~2019-10-02] MED LIST changes: +CHLO25TA3 PO; +DIGO125T2 PO
[2019-10-02 11:34] VITALS: BP 139/62
== END | disposition home or self-care (01) ==
LOC: SRCNTR 11:33
PROVIDERS: ATTEND Hospitalist
DX: C50.912 Malignant neoplasm of unspecified site of left female breast (principal); I42.8 Other cardiomyopathies; I10 Essential (primary) hypertension; E11.9 Type 2 diabetes mellitus without complications; E78.5 Hyperlipidemia, unspecified; Z79.899 Other long term (current) drug therapy; Z88.8 Allergy status to other drugs, medicaments and biological substances; Z95.810 Presence of automatic (implantable) cardiac defibrillator
CPT/HCPCS: G0463; Z7500

== ENCOUNTER → 2019-10-09 | Outpatient (CLI) | payer MEDICARE, OTHER ==
[~2019-10-09] VITALS: Ht 149.9 cm; Wt 55.1 kg
[2019-10-09 14:05] VITALS: BP 134/59
== END | disposition home or self-care (01) ==
LOC: SRCNTR 14:03
PROVIDERS: ATTEND Internal Medicine Cardiovascular Disease
DX: I10 Essential (primary) hypertension (principal); E11.9 Type 2 diabetes mellitus without complications; E78.5 Hyperlipidemia, unspecified; I42.8 Other cardiomyopathies; Z95.0 Presence of cardiac pacemaker; Z90.12 Acquired absence of left breast and nipple; Z85.3 Personal history of malignant neoplasm of breast; Z79.899 Other long term (current) drug therapy; Z91.048 Other nonmedicinal substance allergy status
CPT/HCPCS: G0463; Z7500

== ENCOUNTER → 2019-12-17 | Outpatient (CLI) | payer MEDICARE, OTHER ==
[2019-12-17 11:55] VITALS: BP 144/74
== END | disposition home or self-care (01) ==
LOC: SRCNTR 11:35
PROVIDERS: ATTEND Internal Medicine Cardiovascular Disease
DX: Z45.09 Encounter for adjustment and management of other cardiac device (principal)
CPT/HCPCS: 93289; G0463

== ENCOUNTER → 2020-05-03 | Outpatient (CLI) | payer MEDICARE, OTHER ==
[~2020-05-03] VITALS: Ht 149.9 cm; Wt 52.0 kg
[~2020-05-03] MED LIST changes: -ASPI-1111 PO; +ASPI-1444 PO; -ROSU20TA23 PO; +ROSU20TA73 PO
[2020-05-03 10:50] VITALS: BP 133/69
== END | disposition home or self-care (01) ==
LOC: SRCNTR 10:39
PROVIDERS: ATTEND Internal Medicine Cardiovascular Disease
DX: I10 Essential (primary) hypertension (principal); E78.5 Hyperlipidemia, unspecified; E11.9 Type 2 diabetes mellitus without complications; I42.8 Other cardiomyopathies; Z90.12 Acquired absence of left breast and nipple; Z85.3 Personal history of malignant neoplasm of breast; Z95.810 Presence of automatic (implantable) cardiac defibrillator
CPT/HCPCS: G0463

== ENCOUNTER → 2020-06-16 | Outpatient (CLI) | payer MEDICARE, OTHER ==
[~2020-06-16] VITALS: Ht 149.9 cm; Wt 53.0 kg
[~2020-06-16] MED LIST changes: -ASPI-1444 PO
[2020-06-16 10:06] VITALS: BP 143/66
== END | disposition home or self-care (01) ==
LOC: SRCNTR 09:45
PROVIDERS: ATTEND Internal Medicine Cardiovascular Disease
DX: Z95.810 Presence of automatic (implantable) cardiac defibrillator (principal)
CPT/HCPCS: 93289; G0463

== ENCOUNTER → 2020-10-06 | Outpatient (CLI) | payer MEDICARE, OTHER ==
[~2020-10-06] VITALS: Ht 149.9 cm; Wt 51.6 kg
[2020-10-06 10:59] VITALS: BP 119/61
== END | disposition home or self-care (01) ==
LOC: SRCNTR 10:20
PROVIDERS: ATTEND Internal Medicine Cardiovascular Disease
DX: I10 Essential (primary) hypertension (principal); E11.9 Type 2 diabetes mellitus without complications; E78.5 Hyperlipidemia, unspecified; I42.8 Other cardiomyopathies; Z85.3 Personal history of malignant neoplasm of breast; Z90.13 Acquired absence of bilateral breasts and nipples; Z95.810 Presence of automatic (implantable) cardiac defibrillator
CPT/HCPCS: G0463

== ENCOUNTER → 2020-12-15 | Outpatient (CLI) | payer MEDICARE, OTHER ==
[~2020-12-15] MED LIST changes: -POTA8TAB4 PO; +SLOWK8 PO
[2020-12-15 11:43] VITALS: BP 144/65
== END | disposition home or self-care (01) ==
LOC: SRCNTR 10:02
PROVIDERS: ATTEND Internal Medicine Cardiovascular Disease
DX: Z45.010 Encounter for checking and testing of cardiac pacemaker pulse generator [battery] (principal)
CPT/HCPCS: G0463

== ENCOUNTER → 2021-02-09 | Outpatient (CLI) | payer MEDICARE, OTHER ==
[~2021-02-09] VITALS: Ht 149.9 cm; Wt 52.0 kg
[2021-02-09 10:40] VITALS: BP 134/67
== END | disposition home or self-care (01) ==
LOC: SRCNTR 10:04
PROVIDERS: ATTEND Internal Medicine Cardiovascular Disease
DX: I10 Essential (primary) hypertension (principal); E78.5 Hyperlipidemia, unspecified; I42.8 Other cardiomyopathies; E11.8 Type 2 diabetes mellitus with unspecified complications; D05.92 Unspecified type of carcinoma in situ of left breast; Z90.12 Acquired absence of left breast and nipple; Z95.810 Presence of automatic (implantable) cardiac defibrillator
CPT/HCPCS: G0463; Z7500

== ENCOUNTER → 2021-05-25 | Outpatient (CLI) | payer MEDICARE, OTHER ==
[~2021-05-25] VITALS: Ht 149.9 cm; Wt 50.0 kg
[~2021-05-25] MED LIST changes: -FERR-89 PO; +FERR325T27 PO
[2021-05-25 11:12] VITALS: BP 140/63
== END | disposition home or self-care (01) ==
LOC: SRCNTR 10:52
PROVIDERS: ATTEND Internal Medicine Cardiovascular Disease
DX: Z09 Encounter for follow-up examination after completed treatment for conditions other than malignant neoplasm (principal); I10 Essential (primary) hypertension; E11.9 Type 2 diabetes mellitus without complications; E78.5 Hyperlipidemia, unspecified; I42.8 Other cardiomyopathies; C50.912 Malignant neoplasm of unspecified site of left female breast; Z95.810 Presence of automatic (implantable) cardiac defibrillator; Z90.12 Acquired absence of left breast and nipple
CPT/HCPCS: G0463

== ENCOUNTER → 2021-06-17 | Outpatient (CLI) | payer MEDICARE, OTHER ==
[~2021-06-17] VITALS: Ht 147.3 cm; Wt 48.5 kg
[2021-06-17 10:39] VITALS: BP 135/60
== END | disposition home or self-care (01) ==
LOC: SRCNTR 10:02
PROVIDERS: ATTEND Internal Medicine Cardiovascular Disease
DX: Z95.810 Presence of automatic (implantable) cardiac defibrillator (principal)
CPT/HCPCS: 93289; G0463

== ENCOUNTER → 2021-07-22 | Outpatient (CLI) | payer MEDICARE, OTHER ==
[~2021-07-22] VITALS: Ht 147.3 cm; Wt 48.9 kg
[2021-07-22 10:46] VITALS: BP 117/51
== END | disposition home or self-care (01) ==
LOC: SRCNTR 10:29
PROVIDERS: ATTEND Internal Medicine Cardiovascular Disease
DX: Z09 Encounter for follow-up examination after completed treatment for conditions other than malignant neoplasm (principal); I10 Essential (primary) hypertension; E11.9 Type 2 diabetes mellitus without complications; E78.5 Hyperlipidemia, unspecified; I42.8 Other cardiomyopathies; C50.912 Malignant neoplasm of unspecified site of left female breast; Z95.810 Presence of automatic (implantable) cardiac defibrillator; Z90.12 Acquired absence of left breast and nipple
CPT/HCPCS: G0463

== ENCOUNTER → 2021-12-12 | Outpatient (CLI) | payer MEDICARE, OTHER ==
[~2021-12-12] VITALS: Ht 147.3 cm; Wt 47.5 kg
[2021-12-12 10:16] VITALS: BP 121/68
== END | disposition home or self-care (01) ==
LOC: SRCNTR 09:53
PROVIDERS: ATTEND Internal Medicine Cardiovascular Disease
DX: Z45.010 Encounter for checking and testing of cardiac pacemaker pulse generator [battery] (principal)
CPT/HCPCS: 93289; G0463

== ENCOUNTER → 2021-12-19 | Outpatient (CLI) | payer MEDICARE, OTHER ==
[~2021-12-19] VITALS: Ht 147.3 cm; Wt 48.1 kg
[2021-12-19 11:23] VITALS: BP 136/58
== END | disposition home or self-care (01) ==
LOC: SRCNTR 11:08
PROVIDERS: ATTEND Internal Medicine Cardiovascular Disease
DX: I10 Essential (primary) hypertension (principal); Z09 Encounter for follow-up examination after completed treatment for conditions other than malignant neoplasm; E11.9 Type 2 diabetes mellitus without complications; E78.5 Hyperlipidemia, unspecified; I42.8 Other cardiomyopathies; C50.912 Malignant neoplasm of unspecified site of left female breast; Z95.810 Presence of automatic (implantable) cardiac defibrillator; Z90.12 Acquired absence of left breast and nipple
CPT/HCPCS: G0463

== ENCOUNTER → 2022-03-15 | Outpatient (CLI) | payer MEDICARE, OTHER ==
[~2022-03-15] VITALS: Ht 147.3 cm; Wt 46.0 kg
[2022-03-15 11:30] VITALS: BP 126/59
== END | disposition home or self-care (01) ==
LOC: SRCNTR 11:19
PROVIDERS: ATTEND Internal Medicine Cardiovascular Disease
DX: Z09 Encounter for follow-up examination after completed treatment for conditions other than malignant neoplasm (principal); I10 Essential (primary) hypertension; E11.9 Type 2 diabetes mellitus without complications; E78.5 Hyperlipidemia, unspecified; C50.912 Malignant neoplasm of unspecified site of left female breast; I42.8 Other cardiomyopathies; Z95.810 Presence of automatic (implantable) cardiac defibrillator; Z90.12 Acquired absence of left breast and nipple
CPT/HCPCS: G0463; Z7500

== ENCOUNTER → 2022-03-22 | Outpatient (CLI) | payer MEDICARE, OTHER ==
[~2022-03-22] VITALS: Ht 147.3 cm; Wt 47.0 kg
[2022-03-22 13:52] VITALS: BP 124/55
== END | disposition home or self-care (01) ==
LOC: SRCNTR 12:01
PROVIDERS: ATTEND Internal Medicine Cardiovascular Disease
DX: Z45.018 Encounter for adjustment and management of other part of cardiac pacemaker (principal)
CPT/HCPCS: 93289; G0463

== ENCOUNTER → 2022-05-17 | Outpatient (CLI) | payer MEDICARE, OTHER ==
[~2022-05-17] VITALS: Ht 147.3 cm; Wt 44.0 kg
[2022-05-17 10:34] VITALS: BP 112/52
== END | disposition home or self-care (01) ==
LOC: SRCNTR 10:09
PROVIDERS: ATTEND Internal Medicine Cardiovascular Disease
DX: Z09 Encounter for follow-up examination after completed treatment for conditions other than malignant neoplasm (principal); I10 Essential (primary) hypertension; E11.9 Type 2 diabetes mellitus without complications; E78.5 Hyperlipidemia, unspecified; I42.8 Other cardiomyopathies; R41.81 Age-related cognitive decline; Z95.810 Presence of automatic (implantable) cardiac defibrillator; Z85.3 Personal history of malignant neoplasm of breast; Z90.12 Acquired absence of left breast and nipple
CPT/HCPCS: G0463; Z7500

== ENCOUNTER → 2022-07-19 | Outpatient (CLI) | payer MEDICARE, OTHER ==
[~2022-07-19] VITALS: Ht 147.3 cm; Wt 47.2 kg
[~2022-07-19] MED LIST changes: -ZAFI20TA13 PO; +ZAFI20TA18 PO
[2022-07-19 11:07] VITALS: BP 122/60; PULSE 80; RESP 18; TEMP 98.5; O2SAT 97
== END | disposition home or self-care (01) ==
LOC: SRCNTR 10:53
PROVIDERS: ATTEND Internal Medicine Cardiovascular Disease
DX: Z09 Encounter for follow-up examination after completed treatment for conditions other than malignant neoplasm (principal); I42.8 Other cardiomyopathies; E11.9 Type 2 diabetes mellitus without complications; I10 Essential (primary) hypertension; E78.5 Hyperlipidemia, unspecified; R41.81 Age-related cognitive decline; Z85.3 Personal history of malignant neoplasm of breast; Z90.12 Acquired absence of left breast and nipple; Z95.810 Presence of automatic (implantable) cardiac defibrillator
CPT/HCPCS: G0463; Z7500

== ENCOUNTER → 2022-07-26 | Outpatient (CLI) | payer MEDICARE, OTHER ==
[2022-07-26 13:55] VITALS: BP 126/55; PULSE 78; RESP 18; TEMP 99.2; O2SAT 98
== END | disposition home or self-care (01) ==
LOC: SRCNTR 10:58
PROVIDERS: ATTEND Internal Medicine Cardiovascular Disease
DX: I47.1 Supraventricular tachycardia (principal); Z79.899 Other long term (current) drug therapy
CPT/HCPCS: G0463; Z7500

== ENCOUNTER → 2022-11-01 | Outpatient (CLI) | payer MEDICARE, OTHER ==
[~2022-11-01] MED LIST changes: +MIRT-89 PO
[2022-11-01 15:09] LABS: BASOPHILS % (AUTO) 0.6 % (0.0-2.0); EOSINOPHILS % (AUTO) 1.3 % (1.0-6.0); HEMATOCRIT 32.2 % (36-46); HEMOGLOBIN 10.7 g/dL (12.0-16.0); LYMPHOCYTES # (AUTO) 1.4 K/uL (1.0-4.8); LYMPHOCYTES % (AUTO) 26.8 % (22.0-44.0); MEAN CORPUSCULAR HEMOGLOBIN 28.5 pg (26.0-34.0); MEAN CORPUSCULAR HGB CONC 33.3 G/dL (31.0-37.0); MEAN CORPUSCULAR VOLUME 86 fL (80-100); MONOCYTES # (AUTO) 0.5 K/uL (0.1-1.0); MONOCYTES % (AUTO) 9.2 % (2.0-9.0); NEUTROPHILS # (AUTO) 3.3 K/uL (1.8-7.7); NEUTROPHILS % (AUTO) 62.1 % (40.0-70.0); PLATELET COUNT (AUTO) 141 K/uL (150-450); RED BLOOD CELL COUNT(AUTO) 3.76 MIL/uL (4.00-5.20); RED CELL DISTRIBUTION WIDTH 15.1 % (11.5-14.5); WHITE BLOOD COUNT (AUTO) 5.4 K/uL (4.5-11.0)
[2022-11-01 15:34] LABS: ALBUMIN 3.5 g/dL (3.4-5.0); BILIRUBIN,TOTAL 0.6 mg/dL (0.1-1.0); CALCIUM, TOTAL 9.7 mg/dL (8.8-10.5); CHOL/HDL RATIO 2.4 (3.9-5.7); CREATININE 0.93 mg/dL (0.60-1.30); FREE T4 (FREE THYROXINE) 1.22 ng/dL (0.76-1.46); POTASSIUM 3.9 mmol/L (3.5-5.1); THYROID STIMULATING HORMONE 2.79 uIU/mL (0.36-3.74); TOTAL PROTEIN, SERUM 8.6 g/dL (6.4-8.2)
[2022-11-01 15:42] LABS: HEMOGLOBIN A1C 11.1 % (3.8-5.6)
== END | disposition home or self-care (01) ==
LOC: LABMN 14:34
PROVIDERS: ATTEND Hospitalist
DX: Z01.89 Encounter for other specified special examinations (principal); Z79.899 Other long term (current) drug therapy
CPT/HCPCS: 80053; 80061; 83036; 84439; 84443; 85025

== ENCOUNTER → 2022-11-01 | Outpatient (CLI) | payer MEDICARE, OTHER ==
[~2022-11-01] VITALS: Ht 144.8 cm; Wt 43.3 kg
[~2022-11-01] MED LIST changes: +EMPA10TA3 PO; +INFLUENZA VIRUS VACCINE QVS 2023-24 (6MO+)/PF 60 MCG/0.5 ML SYRINGE IM. ONE; +LIDOCAINE 2%/EPI 1:200,000/PF 10 ML VIAL CAUDAL ONE; +METF-1211 PO
[2022-11-01 12:10] VITALS: BP 126/61; PULSE 81; RESP 16; TEMP 98; O2SAT 98
[2022-11-01 14:11] LABS: GLUCOMETER DEV NAME(LOC) SHC.; GLUCOSE,POINT OF CARE 496 MG/DL (70-110)
== END | disposition home or self-care (01) ==
LOC: SRCNTR 11:48
PROVIDERS: ATTEND Hospitalist
DX: E11.65 Type 2 diabetes mellitus with hyperglycemia (principal); Z23 Encounter for immunization; I10 Essential (primary) hypertension; E78.5 Hyperlipidemia, unspecified; K21.9 Gastro-esophageal reflux disease without esophagitis; D64.9 Anemia, unspecified; Z85.3 Personal history of malignant neoplasm of breast; Z79.899 Other long term (current) drug therapy
CPT/HCPCS: 90686; 82962; 90471; G0463

== ENCOUNTER → 2022-11-14 | Outpatient (CLI) | payer MEDICARE, OTHER ==
[~2022-11-14] VITALS: Ht 144.8 cm; Wt 43.5 kg
[~2022-11-14] MED LIST changes: -INFLUENZA VIRUS VACCINE QVS 2023-24 (6MO+)/PF 60 MCG/0.5 ML SYRINGE IM. ONE; -LIDOCAINE 2%/EPI 1:200,000/PF 10 ML VIAL CAUDAL ONE; +SITA100 PO
[2022-11-14 15:25] VITALS: BP 95/44; PULSE 76; RESP 20; TEMP 98.7; O2SAT 98
== END | disposition home or self-care (01) ==
LOC: SRCNTR 14:54
PROVIDERS: ATTEND Internal Medicine Cardiovascular Disease
DX: Z09 Encounter for follow-up examination after completed treatment for conditions other than malignant neoplasm (principal); I42.8 Other cardiomyopathies; I10 Essential (primary) hypertension; E11.9 Type 2 diabetes mellitus without complications; E78.5 Hyperlipidemia, unspecified; R41.81 Age-related cognitive decline; Z95.810 Presence of automatic (implantable) cardiac defibrillator; Z85.3 Personal history of malignant neoplasm of breast; Z90.12 Acquired absence of left breast and nipple
CPT/HCPCS: G0463; Z7500

== ENCOUNTER → 2022-11-21 | Outpatient (CLI) | payer MEDICARE, OTHER ==
[2022-11-21 15:42] VITALS: BP 109/56; PULSE 74; RESP 18; TEMP 98.1; O2SAT 100
== END | disposition home or self-care (01) ==
LOC: SRCNTR 15:13
PROVIDERS: ATTEND Internal Medicine Cardiovascular Disease
DX: Z45.010 Encounter for checking and testing of cardiac pacemaker pulse generator [battery] (principal)
CPT/HCPCS: G0463; Z7500

== ENCOUNTER → 2022-12-05 | Outpatient (CLI) | payer MEDICARE, OTHER ==
[~2022-12-05] VITALS: Ht 144.8 cm; Wt 45.2 kg
[~2022-12-05] MED LIST changes: +ALBU18HF12 IH; +ALEN70TA65 PO; +CYAN250014 PO; +INSU3INS3 SQ; +NEED-462 MC
[2022-12-05 11:20] VITALS: BP 109/61; PULSE 80; RESP 18; TEMP 98.1; O2SAT 95
[2022-12-05 11:30] LABS: GLUCOMETER DEV NAME(LOC) SHC.; GLUCOSE,POINT OF CARE 383 MG/DL (70-110)
== END | disposition home or self-care (01) ==
LOC: SRCNTR 10:46
PROVIDERS: ATTEND Hospitalist
DX: Z09 Encounter for follow-up examination after completed treatment for conditions other than malignant neoplasm (principal); I49.8 Other specified cardiac arrhythmias; I10 Essential (primary) hypertension; E11.9 Type 2 diabetes mellitus without complications; D64.9 Anemia, unspecified; K21.9 Gastro-esophageal reflux disease without esophagitis
CPT/HCPCS: 82962; G0463

== ENCOUNTER → 2023-02-21 | Outpatient (CLI) | payer MEDICARE, OTHER ==
[~2023-02-21] VITALS: Ht 144.8 cm; Wt 43.0 kg
[~2023-02-21] MED LIST changes: +FLUT1BLS19 IH; +LORA10TA7 PO; -LORA5SOL62 PO; -METF-444 PO
[2023-02-21 10:58] VITALS: BP 116/56; PULSE 78; RESP 18; TEMP 97.8; O2SAT 97
== END | disposition home or self-care (01) ==
LOC: SRCNTR 10:45
PROVIDERS: ATTEND Internal Medicine Cardiovascular Disease
DX: Z09 Encounter for follow-up examination after completed treatment for conditions other than malignant neoplasm (principal); I11.0 Hypertensive heart disease with heart failure; I50.9 Heart failure, unspecified; I42.8 Other cardiomyopathies; E11.9 Type 2 diabetes mellitus without complications; E78.5 Hyperlipidemia, unspecified; R41.81 Age-related cognitive decline
CPT/HCPCS: G0463; Z7500

== ENCOUNTER → 2023-04-23 | Outpatient (CLI) | payer MEDICARE, OTHER ==
[~2023-04-23] VITALS: Ht 144.8 cm; Wt 44.0 kg
[2023-04-23 10:57] VITALS: BP 109/54; PULSE 80; RESP 20; TEMP 98; O2SAT 98
== END | disposition home or self-care (01) ==
LOC: SRCNTR 10:40
PROVIDERS: ATTEND Internal Medicine Cardiovascular Disease
DX: Z09 Encounter for follow-up examination after completed treatment for conditions other than malignant neoplasm (principal); I42.8 Other cardiomyopathies; E11.9 Type 2 diabetes mellitus without complications; I10 Essential (primary) hypertension; E78.5 Hyperlipidemia, unspecified; R41.81 Age-related cognitive decline; Z95.810 Presence of automatic (implantable) cardiac defibrillator; Z90.12 Acquired absence of left breast and nipple; Z85.3 Personal history of malignant neoplasm of breast
CPT/HCPCS: G0463; Z7500

== ENCOUNTER → 2023-05-14 | Outpatient (CLI) | payer MEDICARE, OTHER ==
[~2023-05-14] VITALS: Ht 160 cm; Wt 60.0 kg
[2023-05-14 11:37] VITALS: BP 121/74; PULSE 66; RESP 18; TEMP 98.3; O2SAT 97
== END | disposition home or self-care (01) ==
LOC: SRCNTR 10:12
PROVIDERS: ATTEND Internal Medicine Cardiovascular Disease
DX: Z45.02 Encounter for adjustment and management of automatic implantable cardiac defibrillator (principal)
CPT/HCPCS: G0463; Z7500

== ENCOUNTER → 2023-05-21 | Outpatient (CLI) | payer MEDICARE, OTHER ==
[~2023-05-21] VITALS: Ht 152.4 cm; Wt 45.0 kg
[2023-05-21 13:31] VITALS: BP 108/58; PULSE 83; RESP 18; TEMP 98.2; O2SAT 98
[2023-05-21 15:26] LABS: GLUCOMETER DEV NAME(LOC) SHC.; GLUCOSE,POINT OF CARE 162 MG/DL (70-110)
== END | disposition home or self-care (01) ==
LOC: SRCNTR 13:11
PROVIDERS: ATTEND Hospitalist
DX: Z09 Encounter for follow-up examination after completed treatment for conditions other than malignant neoplasm (principal); I10 Essential (primary) hypertension; E11.9 Type 2 diabetes mellitus without complications; D64.9 Anemia, unspecified; E78.5 Hyperlipidemia, unspecified; E55.9 Vitamin D deficiency, unspecified; Z79.899 Other long term (current) drug therapy
CPT/HCPCS: 82962

== ENCOUNTER → 2023-06-25 | Outpatient (CLI) | payer MEDICARE, OTHER ==
[~2023-06-25] VITALS: Ht 144.8 cm; Wt 44.0 kg
[2023-06-25 10:43] VITALS: BP 105/49; PULSE 74; RESP 18; TEMP 97.7; O2SAT 97
== END | disposition home or self-care (01) ==
LOC: SRCNTR 10:24
PROVIDERS: ATTEND Internal Medicine Cardiovascular Disease
DX: I10 Essential (primary) hypertension (principal); E11.65 Type 2 diabetes mellitus with hyperglycemia; E78.5 Hyperlipidemia, unspecified; I42.8 Other cardiomyopathies; Z95.0 Presence of cardiac pacemaker; C50.912 Malignant neoplasm of unspecified site of left female breast; Z79.899 Other long term (current) drug therapy; Z88.8 Allergy status to other drugs, medicaments and biological substances
CPT/HCPCS: G0463; Z7500

== ENCOUNTER → 2023-06-25 | Outpatient (CLI) | payer MEDICARE, OTHER | END | disposition home or self-care (01) | LOC: RADPV 13:22 | PROVIDERS: ATTEND Hospitalist | DX: I70.203 Unspecified atherosclerosis of native arteries of extremities, bilateral legs (principal); I10 Essential (primary) hypertension; R22.43 Localized swelling, mass and lump, lower limb, bilateral; E11.9 Type 2 diabetes mellitus without complications | CPT/HCPCS: 93925; 93970 ==

== ENCOUNTER → 2023-08-29 | Outpatient (CLI) | payer MEDICARE, OTHER ==
[~2023-08-29] VITALS: Ht 142.2 cm; Wt 43.0 kg
[2023-08-29 10:46] VITALS: BP 118/60; PULSE 78; RESP 20; TEMP 97.9; O2SAT 98
== END | disposition home or self-care (01) ==
LOC: SRCNTR 10:27
PROVIDERS: ATTEND Internal Medicine Cardiovascular Disease
DX: I42.8 Other cardiomyopathies (principal); I10 Essential (primary) hypertension; E78.5 Hyperlipidemia, unspecified; E11.9 Type 2 diabetes mellitus without complications; Z95.0 Presence of cardiac pacemaker; Z90.12 Acquired absence of left breast and nipple; Z85.3 Personal history of malignant neoplasm of breast; Z79.84 Long term (current) use of oral hypoglycemic drugs; Z79.899 Other long term (current) drug therapy; Z91.09 Other allergy status, other than to drugs and biological substances
CPT/HCPCS: G0463; Z7500